=== PATIENT | male | born 1945 | race Caucasian/White ===

== ENCOUNTER 2017-09-29 12:27 | Inpatient (IN) | payer MEDICARE, OTHER ==
[~2017-09-29] VITALS: Ht 170.2 cm; Wt 121.0 kg
[~2017-09-29 12:27] MED LIST: ACET500 PO; AMLO5 PO; ASPI325; CALC1.25T PO; CHOL10002 PO; DICL25ER PO; DICL75ER PO; DONE10 PO; GABA100 PO; GABA300; GLIP5; GLIP5 PO; HYDACE5; INDO50 PO; LORA1; LORA1 PO; LORA2 PO; METF500; METF500 PO; METO100ER PO; METO25 PO; METO25ER PO; METO50; METO50ER PO; MULVITMINF; MULVITSO PO; NAPR250 PO; NAPR375; OMEP10ER; OMEP10ER PO; OXYACE5T PO; OXYC5 PO; RXOXYACE PO
[2017-09-29] MEDS ORDERED: LACT10SY PO (13:24)
[2017-09-29] MEDS ORDERED: ATOR40TA PO (13:24)
[2017-09-29] MEDS ORDERED: ASPI81CH PO (13:24)
[2017-09-29] MEDS ORDERED: METF500 PO (13:25)
[2017-09-29] MEDS ORDERED: CHOL10002 PO (13:25)
[2017-09-29] MEDS ORDERED: Hair, Skin & N1 EACH PO (13:25)
[2017-09-29 13:26] LABS: BASOPHILS ABSOLUTE AUTO 0.05 K/mm3 (0.00-0.23); BASOPHILS PERCENT AUTO 0 % (0-2); EOSINOPHILS ABSOLUTE AUTO 0.09 K/mm3 (0.00-0.68); EOSINOPHILS PERCENT AUTO 1 % (0-6); Hematocrit 47.1 % (37.0-53.0); Hemoglobin 14.1 g/dL (13.5-17.5); IMMATURE GRAN ABSOLUTE AUTO 0.05 K/mm3 (0.00-0.10); IMMATURE GRAN PERCENT AUTO 0 % (0-1); LYMPHOCYTES ABSOLUTE AUTO 1.65 K/mm3 (0.84-5.20); LYMPHOCYTES PERCENT AUTO 15 % (21-46); MONOCYTES ABSOLUTE AUTO 0.67 K/mm3 (0.16-1.47); MONOCYTES PERCENT AUTO 6 % (4-13); Mean Corpuscular HGB 29.8 pg (26.0-34.0); Mean Corpuscular HGB Conc 29.9 g/dL (31.5-36.5); Mean Platelet Volume 12.7 fL (9.1-12.4); NEUTROPHILS ABSOLUTE AUTO 8.61 K/mm3 (1.96-9.15); NEUTROPHILS PERCENT AUTO 78 % (41-73); Platelet Count 251 K/mm3 (150-400); RDW Coefficient Variation 16.9 % (11.7-14.2); RDW Standard Deviation 59.8 fL (35.1-46.3); Red Blood Cell Count 4.73 M/mm3 (4.30-5.90); White Blood Cell Count 11.12 K/mm3 (4.00-11.30)
[2017-09-29] MEDS ORDERED: METO50 PO (13:26)
[2017-09-29] MEDS ORDERED: Milk Of Ma400 MG/5 M PO (13:27)
[2017-09-29] MEDS ORDERED: BISA10S PR (13:27)
[2017-09-29] MEDS ORDERED: DICLOFENAC SOD100 G1 TOP (13:27)
[2017-09-29] MEDS ORDERED: NYST100000 (13:28)
[2017-09-29] MEDS ORDERED: ACET325 PO (13:29)
[2017-09-29] MEDS ORDERED: BASAGLAR K100 UNIT/1 SC (13:30)
[2017-09-29 13:38] LABS: Mean Corpuscular Volume 100 fL (80-100)
[2017-09-29 13:42] LABS: Alanine Aminotransfer (ALT/SGP 20 U/L (12-78); Albumin, Blood 2.8 g/dL (3.4-5.0); Albumin/Globulin Ratio 0.6 (0.8-1.8); Alk Phos 99 U/L (50-136); Anion Gap 4 mmol/L (6-16); Aspartate Aminotrans (AST/SGOT 10 U/L (12-37); Bilirubin, Total 0.9 mg/dL (0.1-1.0); Blood Urea Nitrogen 41 mg/dL (8-24); Bun/Creatinine Ratio 36.6 (12.0-20.0); CO2, Blood 25 mmol/L (21-32); Calcium, Blood 8.8 mg/dL (8.5-10.1); Chloride, Blood 127 mmol/L (98-108); Creatinine, Blood 1.12 mg/dL (0.60-1.20); Globulin, Blood 4.7 g/dL (2.2-4.0); Glomerular Filtration Rate >60 (60-); Glucose, Blood 368 mg/dL (70-99); Potassium, Blood 4.1 mmol/L (3.5-5.5); Sodium, Blood 156 mmol/L (136-145); Total Protein, Blood 7.5 g/dL (6.4-8.2)
[2017-09-29 13:48] LABS: International Normalized Ratio 1.07; Prothrombin Time Results 11.2 Sec (9.7-11.5)
[2017-09-30 05:21] LABS: BASOPHILS ABSOLUTE AUTO 0.03 K/mm3 (0.00-0.23); BASOPHILS PERCENT AUTO 0 % (0-2); EOSINOPHILS ABSOLUTE AUTO 0.32 K/mm3 (0.00-0.68); EOSINOPHILS PERCENT AUTO 4 % (0-6); Hematocrit 39.7 % (37.0-53.0); Hemoglobin 11.8 g/dL (13.5-17.5); IMMATURE GRAN ABSOLUTE AUTO 0.05 K/mm3 (0.00-0.10); IMMATURE GRAN PERCENT AUTO 1 % (0-1); LYMPHOCYTES ABSOLUTE AUTO 1.53 K/mm3 (0.84-5.20); LYMPHOCYTES PERCENT AUTO 17 % (21-46); MONOCYTES ABSOLUTE AUTO 0.76 K/mm3 (0.16-1.47); MONOCYTES PERCENT AUTO 8 % (4-13); Mean Corpuscular HGB 29.8 pg (26.0-34.0); Mean Corpuscular HGB Conc 29.7 g/dL (31.5-36.5); Mean Corpuscular Volume 100 fL (80-100); Mean Platelet Volume 12.7 fL (9.1-12.4); NEUTROPHILS ABSOLUTE AUTO 6.43 K/mm3 (1.96-9.15); NEUTROPHILS PERCENT AUTO 71 % (41-73); Platelet Count 212 K/mm3 (150-400); RDW Standard Deviation 61.7 fL (35.1-46.3); Red Blood Cell Count 3.96 M/mm3 (4.30-5.90); White Blood Cell Count 9.12 K/mm3 (4.00-11.30)
[2017-09-30 05:42] LABS: Alanine Aminotransfer (ALT/SGP 15 U/L (12-78); Albumin, Blood 2.1 g/dL (3.4-5.0); Albumin/Globulin Ratio 0.5 (0.8-1.8); Alk Phos 76 U/L (50-136); Anion Gap 5 mmol/L (6-16); Aspartate Aminotrans (AST/SGOT 11 U/L (12-37); Bilirubin, Total 0.7 mg/dL (0.1-1.0); Blood Urea Nitrogen 30 mg/dL (8-24); CO2, Blood 25 mmol/L (21-32); Calcium, Blood 7.7 mg/dL (8.5-10.1); Chloride, Blood 133 mmol/L (98-108); Creatinine, Blood 0.86 mg/dL (0.60-1.20); Globulin, Blood 4.1 g/dL (2.2-4.0); Glomerular Filtration Rate >60 (60-); Glucose, Blood 233 mg/dL (70-99); Potassium, Blood 3.4 mmol/L (3.5-5.5); Sodium, Blood 163 mmol/L (136-145); Total Protein, Blood 6.2 g/dL (6.4-8.2)
[2017-09-30 21:11] LABS: Anion Gap 4 mmol/L (6-16); Blood Urea Nitrogen 22 mg/dL (8-24); CO2, Blood 26 mmol/L (21-32); Calcium, Blood 7.4 mg/dL (8.5-10.1); Chloride, Blood 131 mmol/L (98-108); Creatinine, Blood 0.85 mg/dL (0.60-1.20); Glomerular Filtration Rate >60 (60-); Glucose, Blood 282 mg/dL (70-99); Potassium, Blood 3.6 mmol/L (3.5-5.5); Sodium, Blood 161 mmol/L (136-145)
[2017-10-01 03:44] LABS: BASOPHILS ABSOLUTE AUTO 0.03 K/mm3 (0.00-0.23); BASOPHILS PERCENT AUTO 0 % (0-2); EOSINOPHILS ABSOLUTE AUTO 0.41 K/mm3 (0.00-0.68); EOSINOPHILS PERCENT AUTO 5 % (0-6); Hematocrit 36.1 % (37.0-53.0); Hemoglobin 10.6 g/dL (13.5-17.5); IMMATURE GRAN ABSOLUTE AUTO 0.06 K/mm3 (0.00-0.10); IMMATURE GRAN PERCENT AUTO 1 % (0-1); LYMPHOCYTES ABSOLUTE AUTO 1.57 K/mm3 (0.84-5.20); LYMPHOCYTES PERCENT AUTO 21 % (21-46); MONOCYTES ABSOLUTE AUTO 0.55 K/mm3 (0.16-1.47); MONOCYTES PERCENT AUTO 7 % (4-13); Mean Corpuscular HGB Conc 29.4 g/dL (31.5-36.5); Mean Corpuscular Volume 102 fL (80-100); NEUTROPHILS ABSOLUTE AUTO 4.95 K/mm3 (1.96-9.15); NEUTROPHILS PERCENT AUTO 65 % (41-73); RDW Coefficient Variation 16.6 % (11.7-14.2); RDW Standard Deviation 61.9 fL (35.1-46.3); Red Blood Cell Count 3.53 M/mm3 (4.30-5.90); White Blood Cell Count 7.57 K/mm3 (4.00-11.30)
[2017-10-01 03:48] LABS: Mean Platelet Volume 12.7 fL (9.1-12.4); Platelet Count 138 K/mm3 (150-400)
[2017-10-01 03:57] LABS: Anion Gap 4 mmol/L (6-16); Blood Urea Nitrogen 20 mg/dL (8-24); Bun/Creatinine Ratio 24.8 (12.0-20.0); CO2, Blood 26 mmol/L (21-32); Calcium, Blood 7.3 mg/dL (8.5-10.1); Chloride, Blood 130 mmol/L (98-108); Creatinine, Blood 0.81 mg/dL (0.60-1.20); Glomerular Filtration Rate >60 (60-); Glucose, Blood 178 mg/dL (70-99); Magnesium, Blood 2.2 mg/dL (1.6-2.4); Sodium, Blood 160 mmol/L (136-145)
[2017-10-01 09:08] LABS: Vancomycin, Trough 23.8 ug/mL (5.0-10.0)
[2017-10-01 13:00] LABS: Anion Gap 5 mmol/L (6-16); Blood Urea Nitrogen 17 mg/dL (8-24); Bun/Creatinine Ratio 21.1 (12.0-20.0); CO2, Blood 25 mmol/L (21-32); Calcium, Blood 7.7 mg/dL (8.5-10.1); Chloride, Blood 129 mmol/L (98-108); Creatinine, Blood 0.81 mg/dL (0.60-1.20); Glomerular Filtration Rate >60 (60-); Glucose, Blood 147 mg/dL (70-99); Potassium, Blood 3.3 mmol/L (3.5-5.5); Sodium, Blood 159 mmol/L (136-145)
[2017-10-01 18:33] LABS: Anion Gap 4 mmol/L (6-16); Blood Urea Nitrogen 16 mg/dL (8-24); Bun/Creatinine Ratio 18.2 (12.0-20.0); CO2, Blood 27 mmol/L (21-32); Calcium, Blood 7.8 mg/dL (8.5-10.1); Chloride, Blood 125 mmol/L (98-108); Creatinine, Blood 0.88 mg/dL (0.60-1.20); Glomerular Filtration Rate >60 (60-); Glucose, Blood 217 mg/dL (70-99); Potassium, Blood 3.2 mmol/L (3.5-5.5); Sodium, Blood 156 mmol/L (136-145)
[2017-10-02 00:31] LABS: Anion Gap 7 mmol/L (6-16); Blood Urea Nitrogen 13 mg/dL (8-24); Bun/Creatinine Ratio 17.2 (12.0-20.0); CO2, Blood 21 mmol/L (21-32); Calcium, Blood 7.4 mg/dL (8.5-10.1); Chloride, Blood 126 mmol/L (98-108); Creatinine, Blood 0.76 mg/dL (0.60-1.20); Glomerular Filtration Rate >60 (60-); Glucose, Blood 287 mg/dL (70-99); Potassium, Blood 3.4 mmol/L (3.5-5.5); Sodium, Blood 154 mmol/L (136-145)
[2017-10-02 06:19] LABS: Anion Gap 6 mmol/L (6-16); Blood Urea Nitrogen 11 mg/dL (8-24); Bun/Creatinine Ratio 15.1 (12.0-20.0); CO2, Blood 22 mmol/L (21-32); Calcium, Blood 7.4 mg/dL (8.5-10.1); Chloride, Blood 125 mmol/L (98-108); Creatinine, Blood 0.73 mg/dL (0.60-1.20); Glomerular Filtration Rate >60 (60-); Glucose, Blood 219 mg/dL (70-99); Potassium, Blood 3.1 mmol/L (3.5-5.5); Sodium, Blood 153 mmol/L (136-145)
[2017-10-02 12:43] LABS: Vancomycin, Trough 20.3 ug/mL (5.0-10.0)
[2017-10-03 04:47] LABS: Anion Gap 9 mmol/L (6-16); Blood Urea Nitrogen 8 mg/dL (8-24); Bun/Creatinine Ratio 10.5 (12.0-20.0); CO2, Blood 21 mmol/L (21-32); Chloride, Blood 120 mmol/L (98-108); Creatinine, Blood 0.76 mg/dL (0.60-1.20); Glomerular Filtration Rate >60 (60-); Glucose, Blood 169 mg/dL (70-99); Potassium, Blood 3.2 mmol/L (3.5-5.5); Sodium, Blood 150 mmol/L (136-145)
[2017-10-03] MEDS ORDERED: TAMS.4ER PO (11:19)
[2017-10-03] MEDS ORDERED: LEVO750 PO (11:20)
[2017-10-03] MEDS ORDERED: LEVEMIR FL100 UNIT/1 SC (11:39)
[2017-10-03] MEDS ORDERED: POTCHL20ER PO (11:46)
[2017-10-03 13:21] LABS: Vancomycin, Trough 20.3 ug/mL (5.0-10.0)
== END 2017-10-03 14:58 | DRG 872 ==
LOC: ER 12:27 → MEDS 12:28 → ICUW 15:50 → MEDS 15:50 → ICUW 16:09 → MEDS 09-30 05:00 → ICUW 09-30 16:07
PROVIDERS: Internal Medicine; Nurse Practitioner Family
DX: A41.9 Sepsis, unspecified organism (principal); N39.0 Urinary tract infection, site not specified; E87.0 Hyperosmolality and hypernatremia; F03.90 Unspecified dementia, unspecified severity, without behavioral disturbance, psychotic disturbance, mood disturbance, and anxiety; E78.5 Hyperlipidemia, unspecified; E11.9 Type 2 diabetes mellitus without complications; I10 Essential (primary) hypertension; K21.9 Gastro-esophageal reflux disease without esophagitis; I25.10 Atherosclerotic heart disease of native coronary artery without angina pectoris; Z66 Do not resuscitate; N40.1 Benign prostatic hyperplasia with lower urinary tract symptoms; R41.0 Disorientation, unspecified; Z99.3 Dependence on wheelchair
CPT/HCPCS: 36415; 71045; 80048; 80053; 80202; 82947; 83036; 83605; 83735; 84145; 84295; 85025; 85610; 85730; 87040; 87493; 92526; 92610; 93005; 93010; 94762; 96361; 96374; 99285; C1751; G8996; G8997; G8998; J0696; J1650; J1815; J2543; J3370; J7030; J7050; J7060; J7070

== ENCOUNTER → 2019-03-18 | Outpatient (CLI) | payer MEDICARE, OTHER ==
[~2019-03-18] MED LIST changes: +ACET325 PO; +ASPI81CH PO; +ATOR40TA PO; +BASAGLAR K100 UNIT/1 SC; +BISA10S PR; +DICLOFENAC SOD100 G1 TOP; +Hair, Skin & N1 EACH PO; +LACT10SY PO; +LEVEMIR FL100 UNIT/1 SC; +LEVO750 PO; +METO50 PO; +Milk Of Ma400 MG/5 M PO; +NYST100000; +POTCHL20ER PO; +TAMS.4ER PO
[2019-03-18 11:37] LABS: Source, Urine Clean Catch
[2019-03-18 11:56] LABS: Appearance, Urine Turbid (Clear); Bilirubin, Urine Neg (Neg); Blood, Urine 5+ (Neg); Color, Urine Brown (P-Yellow); Glucose Qualitative, Urine Neg (Neg); Ketones, Urine 2+ (Neg); Leukocyte Esterase, Urine 2+ (Neg); Nitrite, Urine Pos (Neg); Protein, Urine 4+ (Neg); Urobilinogen, Urine 1+ (Normal); pH, Urine 6.5 (5.0-8.0)
[2019-03-18 12:34] LABS: Bacteria Mod /hpf; Red Blood Cells, Urine TNTC /hpf (0-2); Squamous Epithelial Cells Not Seen /hpf (Few); White Blood Cells, Urine TNTC /hpf (0-5)
== END | disposition home or self-care (01) ==
LOC: EDSTATUS 11:06 → LAB UVN 11:36
DX: N39.0 Urinary tract infection, site not specified (principal)
CPT/HCPCS: 81001; 87077; 87086; 87186

== ENCOUNTER → 2019-05-18 | Outpatient (CLI) | payer MEDICARE, OTHER ==
[2019-05-18 18:05] LABS: Source, Urine Catheter
[2019-05-18 18:11] LABS: Bilirubin, Urine Neg (Neg); Blood, Urine 4+ (Neg); Glucose Qualitative, Urine Neg (Neg); Ketones, Urine 1+ (Neg); Leukocyte Esterase, Urine 3+ (Neg); Nitrite, Urine Pos (Neg); Protein, Urine 2+ (Neg); Specific Gravity, Urine 1.015 (1.003-1.022); Urobilinogen, Urine 2+ (Normal)
[2019-05-18 18:25] LABS: Appearance, Urine Hazy (Clear); Color, Urine Yellow (P-Yellow)
[2019-05-18 18:27] LABS: White Blood Cells, Urine 25-50 /hpf (0-5)
[2019-05-18 18:29] LABS: Bacteria Many /hpf; Squamous Epithelial Cells Rare /hpf (Few)
== END | disposition home or self-care (01) ==
LOC: EDSTATUS 07:47 → LAB UVN 07:49
DX: N39.0 Urinary tract infection, site not specified (principal)
CPT/HCPCS: 81001; 87077; 87086; 87186

== ENCOUNTER → 2019-09-18 | Outpatient (CLI) | payer MEDICARE, OTHER | END | disposition home or self-care (01) | LOC: LAB UVN 09:28 → EDSTATUS 10:43 | DX: E11.41 Type 2 diabetes mellitus with diabetic mononeuropathy (principal) | CPT/HCPCS: 83036 ==

== ENCOUNTER → 2019-12-11 | Outpatient (CLI) | payer MEDICARE, OTHER | END | disposition home or self-care (01) | LOC: EDSTATUS 08:21 → LAB UVN 13:27 | DX: E11.41 Type 2 diabetes mellitus with diabetic mononeuropathy (principal) | CPT/HCPCS: 83036 ==

== ENCOUNTER → 2020-03-04 | Outpatient (CLI) | payer MEDICARE, OTHER | END | disposition home or self-care (01) | LOC: EDSTATUS 10:51 → LAB UVN 12:51 | DX: E11.41 Type 2 diabetes mellitus with diabetic mononeuropathy (principal) | CPT/HCPCS: 83036 ==

== ENCOUNTER → 2020-04-06 | Outpatient (CLI) | payer MEDICARE, OTHER ==
[2020-04-06 23:12] LABS: Anion Gap 5 mmol/L (6-16); Blood Urea Nitrogen 14 mg/dL (8-24); Bun/Creatinine Ratio 24.9 (12.0-20.0); CO2, Blood 28 mmol/L (21-32); Calcium, Blood 9.1 mg/dL (8.5-10.1); Chloride, Blood 108 mmol/L (98-108); Creatinine, Blood 0.56 mg/dL (0.60-1.20); Glomerular Filtration Rate >60 (60-); Glucose, Blood 133 mg/dL (70-99); Sodium, Blood 141 mmol/L (136-145)
== END | disposition home or self-care (01) ==
LOC: EDSTATUS 15:27 → LAB UVN 22:32
PROVIDERS: Nurse Practitioner Adult Health
DX: E11.42 Type 2 diabetes mellitus with diabetic polyneuropathy (principal)
CPT/HCPCS: 80048

== ENCOUNTER → 2020-05-27 | Outpatient (CLI) | payer MEDICARE, OTHER | END | disposition home or self-care (01) | LOC: LAB UVN 03:48 | DX: E11.42 Type 2 diabetes mellitus with diabetic polyneuropathy (principal) | CPT/HCPCS: 83036 ==

== ENCOUNTER 2020-06-16 20:21 | Observation (INO) | payer MEDICARE, OTHER ==
[~2020-06-16] VITALS: Ht 180.3 cm; Wt 127.0 kg
[2020-06-16 21:05] LABS: BASOPHILS ABSOLUTE AUTO 0.12 K/mm3 (0.00-0.23); BASOPHILS PERCENT AUTO 0 % (0-2); Hematocrit 44.6 % (37.0-53.0); Hemoglobin 14.2 g/dL (13.5-17.5); LYMPHOCYTES ABSOLUTE AUTO 1.36 K/mm3 (0.84-5.20); LYMPHOCYTES PERCENT AUTO 3 % (21-46); MONOCYTES ABSOLUTE AUTO 1.59 K/mm3 (0.16-1.47); MONOCYTES PERCENT AUTO 4 % (4-13); Mean Corpuscular HGB 29.5 pg (26.0-34.0); Mean Corpuscular HGB Conc 31.8 g/dL (31.5-36.5); Mean Corpuscular Volume 93 fL (80-100); Mean Platelet Volume 12.5 fL (9.1-12.4); NRBC ABSOLUTE 0.02 K/mm3 (0.00-0.02); NRBC Auto 0.1 /100 WBC (0.0-0.2); Platelet Count 173 K/mm3 (150-400); RDW Coefficient Variation 14.5 % (11.7-14.2); RDW Standard Deviation 50.1 fL (35.1-46.3); Red Blood Cell Count 4.81 M/mm3 (4.30-5.90); White Blood Cell Count 39.56 K/mm3 (4.00-11.30)
[2020-06-16 21:08] LABS: EOSINOPHILS PERCENT AUTO 0 % (0-6); IMMATURE GRAN ABSOLUTE AUTO 1.53 K/mm3 (0.00-0.10); IMMATURE GRAN PERCENT AUTO 4 % (0-1); NEUTROPHILS ABSOLUTE AUTO 34.96 K/mm3 (1.96-9.15); NEUTROPHILS PERCENT AUTO 88 % (41-73)
[2020-06-16 21:15] LABS: Bicarbonate Venous 14.4 mmol/L (24.0-30.0); PCO2 Venous 35.2 mmHg (38-42); PO2 Venous 55.7 mmHg (38-42); pH Blood Venous 7.21 (7.34-7.37)
[2020-06-16 21:30] LABS: Albumin, Blood 2.5 g/dL (3.4-5.0); Albumin/Globulin Ratio 0.5 (0.8-1.8); BAND PERCENT MAN 18 % (0-8); BASOPHILS PERCENT MAN 0 % (0-2); Bilirubin, Total 0.7 mg/dL (0.1-1.0); Bun/Creatinine Ratio 17.9 (12.0-20.0); Calcium, Blood 9.7 mg/dL (8.5-10.1); Creatinine, Blood 3.01 mg/dL (0.60-1.20); EOSINOPHILS PERCENT MAN 0 % (0-6); LYMPHOCYTES ABSOLUTE MAN 1.58 K/mm3 (0.84-5.20); LYMPHOCYTES PERCENT MAN 4 % (21-46); METAMYELOCYTE ABSOLUTE MAN 0.79 K/mm3 (0.00-0.00); METAMYELOCYTE PERCENT MAN 2 % (0-0); MONOCYTES ABSOLUTE MAN 1.58 K/mm3 (0.16-1.47); MONOCYTES PERCENT MAN 4 % (4-13); Potassium, Blood 4.1 mmol/L (3.5-5.5); SEG NEUTROPHILS PERCENT MAN 72 % (41-73); TOTAL CELLS COUNTED 100; Total Protein, Blood 7.5 g/dL (6.4-8.2)
[2020-06-16 21:32] LABS: Troponin I 2.29 ng/mL (0.000-0.040)
--- NOTE | 2020-06-16 23:42 | NUR ---
74 YR OLD MALE ADMITTED TO FLOOR FROM THE ED BY WAY OF THE SENIOR C DEVELOPER WHERE THEY PLACE A SUPRAPUBIC CATH AND SMALL DRAINAGE BAG. 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 URINE CLOUDY. PT ON COMFORT CARE. ED RN STATED PT IS FROM [facility] WHERE HE WAS ON COMFORT CARE, HE RECEIVED A COVID 19 VACCINE ANDDEVELOPED A FEVER, THEN EVENTUALLY BECAME UNRESPONSIVE. WAS GIVEN FLUIDS AT [facility] BUT DIDNT VOID, BLADDER SCANNED THERE WITH 1000 CC RETENTION, TRANSFERRED TO [facility] WHERE HE REMAINED UNRESPONSIVE AND WAS TAKEN TO ABOVE MENTIONED SENIOR C DEVELOPER FOR SUPRAPUBIC CATH PLACEMENT. ON NON REBREATHER WITH O2. SKIN SOMEWHAT CYANOTIC. KUSHMAL BREATHING. CALL LIGHT IN REACH. CHARGE NURSE SEES PT IN ROOM.
--- NOTE | 2020-06-17 00:05 | NUR ---
RT NOTIFIED OF HIGH FLOW O2 EQUIPMENT BROUGHT WITH PT TO THE FLOOR. RT IN ROOM AND ASSESSED, HOOKED UP PT TO SAID EQUIPMENT. SEE RT DOCUMENTATION FOR DETAILS.
--- NOTE | 2020-06-17 00:27 | NUR ---
AT 0015, NOTED PT NOT BREATHING. 2 RN'S ASSESSED. LISTENED FOR HEARTBEAT. NO HEART BEAT NOTED. NO BP NOTED. CALL PLACED TO TOOTH CLERK DR SELMA ANDRADE ACCEPTED 2 RN PRONOUNCING PT AT 0015. CHARGE NURSES NOTIFIED, CALL PLACED TO FOR NOTIFICATIONS. TO BE IN IN ABOUT AN HOUR AND REQUESTED PASTORAL CARE TO BE PRESENT WELL. CHARGE NURSE NOTIFIED. "OPEN TO SUGGESTIONS" RE HOME. CHARGE NURSE NOTIFIED OF THIS WELL.
--- NOTE | 2020-06-17 01:50 | NUR ---
CAME IN WITH DAUGHTER TO BE WITH PT. PASTORAL CARE "MARLO" ARRIVED AND IS NOW IN WITH FAMILY.
--- NOTE | 2020-06-17 02:09 | NUR ---
Patient's family are bedside and grieving appropriately. I conduct a life review of patient, provide grief support, pastoral licensed mental health counselor and prayer. Family respond well and show signs of being comforted. Family tell me the funreal home ([facility]) of choice and I relay that information to patient's RN Heber.
--- NOTE | 2020-06-17 02:30 | NUR ---
PASTORAL CARE (MARLO) LEFT AFTER HE SAID WANTED [facility] TO TAKE PT. CHARGE NURSE NOTIFIED. LEFT AFTER SHE ASKED WHAT HER OF. I TOLE HER WHAT HIS DX WAS BUT DIDNOT KNOW HIS CAUSE OF . I SUGGESTED SHE CALL BACK TOMORROW AND SPEAK WITH THE CHARGE NURSE FOR FURTHER ANSWERS. SHE SAID SHE WOULD AND LEFT.
== END 2020-06-17 00:15 ==
LOC: ER 20:21 → MEDS 20:22
PROVIDERS: Emergency Medicine; ADMIT Family Medicine
DX: Z51.5 Encounter for palliative care (principal); A41.9 Sepsis, unspecified organism; R65.21 Severe sepsis with septic shock; J96.01 Acute respiratory failure with hypoxia; G92 Toxic encephalopathy; R77.8 Other specified abnormalities of plasma proteins; N17.9 Acute kidney failure, unspecified; I10 Essential (primary) hypertension; K21.9 Gastro-esophageal reflux disease without esophagitis; E11.40 Type 2 diabetes mellitus with diabetic neuropathy, unspecified; F03.90 Unspecified dementia, unspecified severity, without behavioral disturbance, psychotic disturbance, mood disturbance, and anxiety; N32.89 Other specified disorders of bladder; R33.9 Retention of urine, unspecified; E87.2 Acidosis; Z23 Encounter for immunization; Z66 Do not resuscitate; Z88.2 Allergy status to sulfonamides; Z79.82 Long term (current) use of aspirin; Z79.4 Long term (current) use of insulin; Z79.899 Other long term (current) drug therapy; Z96.653 Presence of artificial knee joint, bilateral
CPT/HCPCS: 36415; 51798; 71045; 80053; 82803; 83605; 84484; 85025; 87040; 87077; 87186; 93005; 93010; 99285-25; C1769; G0378; J2250; J3010; Q9967

== ENCOUNTER → 2020-06-16 | Outpatient (CLI) | payer MEDICARE, OTHER ==
[2020-06-16 10:57] LABS: Hematocrit 44.4 % (37.0-53.0); Hemoglobin 14.2 g/dL (13.5-17.5); Mean Corpuscular HGB 29.1 pg (26.0-34.0); Mean Corpuscular Volume 91 fL (80-100); Mean Platelet Volume 12.1 fL (9.1-12.4); Platelet Count 198 K/mm3 (150-400); RDW Standard Deviation 47.3 fL (35.1-46.3); Red Blood Cell Count 4.88 M/mm3 (4.30-5.90); White Blood Cell Count 8.85 K/mm3 (4.00-11.30)
[2020-06-16 11:14] LABS: Bun/Creatinine Ratio 24.3 (12.0-20.0); Calcium, Blood 9.3 mg/dL (8.5-10.1); Creatinine, Blood 1.69 mg/dL (0.60-1.20); Potassium, Blood 4.2 mmol/L (3.5-5.5)
== END | disposition home or self-care (01) ==
LOC: LAB UVN 10:00 → EDSTATUS 15:00
PROVIDERS: Family Medicine
DX: N40.0 Benign prostatic hyperplasia without lower urinary tract symptoms (principal); I25.10 Atherosclerotic heart disease of native coronary artery without angina pectoris; A41.89 Other specified sepsis
CPT/HCPCS: 80048; 85027